=== PATIENT | male | born 1940 | race Caucasian/White ===

== ENCOUNTER → 2016-06-25 | Outpatient (CLI) | payer OTHER, BC ==
[~2016-06-25] VITALS: Ht 180.3 cm; Wt 61.4 kg
[~2016-06-25] MED LIST: ALDACTONE50 MG PO; ALLOPURINOL300 MG PO; AMARYL4 MG PO; APRESOLINE25 MG; APRESOLINE25 MG PO; ASCORBIC ACID500 M3 PO; ASPIRIN81 M1 PO; BAYER CHEWABLE81 MG PO; CARAFATE1 GM PO; CILOSTAZOL50 MG PO; CLONIDINE HCL0.1 MG PO; COLACE CLEAR50 MG PO; COLACE100 MG PO; CORGARD40 MG PO; CYANOCOBALAM1000 MCG PO; FEOSOL PO; FEOSOL45 MG PO; FUROSEMIDE20 MG PO; FUROSEMIDE40 MG PO; GLIMEPIRIDE4 MG PO; GLUCOPHAGE XR,500 MG PO; GLUCOPHAGE1000 MG PO; HYDRALAZINE HCL25 MG PO; HYDRODIURIL,ORE50 MG PO; IRON325 M1 PO; JANUVIA100 MG; KLOR-CON M1010 MEQ PO; LASIX20 MG PO; LISINOPRIL20 MG PO; LO-DOSE ASPIRIN81 M1 PO; LO-DOSE ASPIRIN81 M2 PO; METFORMIN HCL500 M1 PO; METFORMIN HCL500 MG PO; NADOLOL20 MG PO; PROCRIT10000 UNI1 IV; PROCRIT10000 UNI1 SC; PROTONIX40 MG PO; SIMVASTATIN10 MG PO; SPIRONOLACTONE50 MG PO; SUCRALFATE1 GM PO; TRAMADOL HCL50 MG PO; VITAMIN B122500 MCG PO; VITAMIN C500 M1 PO; VITAMIN D2000 UNIT PO; VITAMIN D32000 UNI1 PO; ZOCOR10 MG PO; ZOCOR20 MG PO; ZYLOPRIM150 MG PO
== END | disposition home or self-care (01) ==
LOC: RAD 13:21 → EDSTATUS 13:30 → RAD 13:30
PROC: 0W9G3ZZ Drainage of Peritoneal Cavity, Percutaneous Approach (ICD-10-PCS; principal; 2016-06-25)
DX: R18.8 Other ascites (principal)
CPT/HCPCS: P9047